=== PATIENT | male | born 1990 | race Caucasian/White ===

== ENCOUNTER 2019-12-05 16:27 | Emergency (ER) | payer BC ==
--- NOTE | 2019-12-05 17:07 | EDM.PDOC ---
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 He states the pain is sharp and does radiate but cannot pinpoint where to. Any type movement aggrevates the pain. He has not taken any medications for his pain or tried ice/heat. The patient notes a history of an L4 hairline fracture around 10 years ago, but has no other significant history. He does not have any chronic conditions and is not on any medications. Denies any numbness and weakness in lower extremities. Onset: Today, Sudden Duration: Constant Location: Reports: Back Quality: Reports: Sharp Severity: Severe Improves with: Reports: None Worsens with: Reports: Movement Associated Symptoms: Reports: No Other Symptoms (possible numbness in toes but patient feels it was due to working in the cold) Lower Back Pain Score (Numeric/FACES): 8 - Related Data Allergies Allergy/AdvReac Type Severity Reaction Status Date / Time No Known Allergies Allergy Verified 12/05/19 16:46 Home Meds: Home Meds Cyclobenzaprine [Flexeril] 10 mg PO TID PRN #20 tab 12/05/19 [Rx] Hydrocodone/Acetaminophen [Hydrocodon-Acetaminophen 5-325] 1 - 2 each PO Q6HR PRN #10 tablet 12/05/19 [Rx] Past Medical History Other Musculoskeletal History: hairline fx L4 - Past Surgical History Musculoskeletal Surgical History: Reports: Other (See Below) Other Musculoskeletal Surgeries/Procedures:: knee surgery Social & Family History - Tobacco Use Smoking Status *Q: Current Every Day Smoker Years of Tobacco use: 7 Packs/Tins Daily: 0.5 - Caffeine Use Caffeine Use: Reports: Coffee - Recreational Drug Use Recreational Drug Use: No ED ROS GENERAL - Review of Systems Review Of Systems: See Below Constitutional: Reports: No Symptoms Respiratory: Reports: No Symptoms Cardiovascular: Reports: No Symptoms GI/Abdominal: Reports: No Symptoms : Reports: No Symptoms Musculoskeletal: Reports: Back Pain (low thoracic, lumbar ), Muscle Pain, Muscle Stiffness. Denies: Neck Pain, Shoulder Pain, Leg Pain Skin: Reports: No Symptoms Neurological: Reports: No Symptoms ED EXAM,LOWER BACK PAIN/INJURY - Physical Exam Exam: See Below Exam Limited By: No Limitations General Appearance: Alert, WD/WN, Moderate Distress (due to pain, patient extremely hesitant to move in any way) Head: Atraumatic, Normocephalic Neck: Normal Inspection, Supple, Non-Tender, Full Range of Motion Respiratory/Chest: No Respiratory Distress, Chest Non-Tender Back Exam: Normal Inspection, Decreased Range of Motion, Muscle Spasm, Paraspinal Tenderness. No: Vertebral Tenderness Extremities: Other (No decreased range of motion or strength but slow due to pain ) Neurological: Alert, Normal Mood/Affect Psychiatric: Normal Affect, Normal Mood Skin Exam: Warm, Dry, Intact, Normal Color, No Rash Course - Vital Signs Last Recorded V/S: Last Vital Signs Temp 96.7 F 12/05/19 16:42 Pulse 116 H 12/05/19 16:42 Resp 16 12/05/19 16:42 BP 154/120 H 12/05/19 16:42 Pulse Ox 96 12/05/19 16:42 - Orders/Labs/Meds Meds: Medications Discontinued Medications Generic Name Dose Route Start Last Admin Trade Name Carq PRN Reason Stop Dose Admin Cyclobenzaprine HCl 10 mg 12/05/19 17:11 12/05/19 17:20 Flexeril PO 12/05/19 17:12 10 mg ONETIME ONE Administration Hydromorphone HCl 1 mg 12/05/19 17:10 12/05/19 17:20 Dilaudid IM 12/05/19 17:11 1 mg ONETIME ONE Administration Ketorolac Tromethamine 60 mg 12/05/19 17:10 12/05/19 17:21 Toradol IM 12/05/19 17:11 60 mg ONETIME ONE Administration Departure - Departure Disposition: Home, Self-Care 01 Clinical Impression: Lumbar strain Qualifiers: Encounter type: initial encounter Qualified Code(s): S39.012A - Strain of muscle, fascia and tendon of lower back, initial encounter - Discharge Information Prescriptions: Hydrocodone/Acetaminophen [Hydrocodon-Acetaminophen 5-325] 1 - 2 each PO Q6HR PRN #10 tablet PRN Reason: Pain Cyclobenzaprine [Flexeril] 10 mg PO TID PRN #20 tab PRN Reason: Pain Referrals: PCP,None [Primary Care Provider] - Duke Caicedo PA-C [Physician Assistant Women'S Rowing Coach] - 1 Week Forms: ED Department Discharge Additional Instructions: Ice your back for 15 minutes 3 times per day. Take mortin or aleve for pain Take the flexeril 10mg every 8 hours as needed for pain. Take the hydrocodone as needed for pain. Please return if you are worse. Sepsis Event Note - Evaluation Sepsis Screening Result: No Definite Risk - Focused Exam Vital Signs: Vital Signs Temp Pulse Resp BP Pulse Ox 12/05/19 16:42 96.7 F 116 H 16 154/120 H 96 Date Exam was Performed: 12/05/19 Time Exam was Performed: 17:15 <Jordin Puente - Last Filed: 12/05/19 18:41> Course - Re-Assessments/Exams Free Text/Narrative Re-Assessment/Exam: 12/05/19 18:35 I examined the patient myself and I agree with Amanda's assessment and plan. I ordered dilaudid 1mg IM, toradol 60mg IM and flexeril 10mg PO. That did help some. I will discharge him home. Departure - Departure Time of Disposition: 18:40 Condition: Good - Discharge Information *PRESCRIPTION DRUG MONITORING PROGRAM REVIEWED*: Not Applicable *COPY OF PRESCRIPTION DRUG MONITORING REPORT IN PATIENT NERIS: Not Applicable Sepsis Event Note - Focused Exam Date Exam was Performed: 12/05/19 Time Exam was Performed: 18:35
[2019-12-05] MEDS ORDERED: HYDROmorphone 1 MG/ML Syringe IM ONE (17:10)
[2019-12-05] MEDS ORDERED: Ketorolac 60 MG/2 ML SDV IM ONE (17:10)
[2019-12-05] MEDS ORDERED: Cyclobenzaprine 10 MG Tab PO ONE (17:11)
== END 2019-12-05 18:50 | disposition home or self-care (01) ==
LOC: JD.ED 16:27
DX: S39.012A Strain of muscle, fascia and tendon of lower back, initial encounter (principal); F17.210 Nicotine dependence, cigarettes, uncomplicated; X50.9XXA Other and unspecified overexertion or strenuous movements or postures, initial encounter
CPT/HCPCS: 96372; 99283; A9270; J1170; J1885